=== PATIENT | male | born 1970 | race African-American/Black ===

== ENCOUNTER → 2017-09-20 | Outpatient (CLI) | payer BC ==
--- NOTE | 2017-09-20 08:56 | Diagnostic Imaging Report ---
Clinical indication: Patient with pain and swelling to the first and second metacarpal areas. No known injury to hand. Exam: X-ray of the left hand, 3 views. Comparison: None. Findings: There appears to be nonspecific soft tissue swelling involving the first through third digits. There is no radiodense foreign objects or air seen in the soft tissue. There are small degenerative spurs scattered throughout the IP joints of the left hand. Chronic calcification or old traumatic injury seen involving the volar base of the fourth middle phalanx. Impression: 1: There is no evidence of acute fracture or dislocation. 2: Nonspecific soft tissue swelling of the first through third digits. There is no radiodense foreign object in the soft tissue or subcutaneous air. 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 4: Suspected chronic posttraumatic calcification seen adjacent to the volar base of the fourth middle phalanx Dictated by: Dictated on workstation # [id number]
== END ==
LOC: RAD 08:22
PROVIDERS: ATTEND Nurse Practitioner Family
DX: M19.042 Primary osteoarthritis, left hand (principal)
CPT/HCPCS: 73130

== ENCOUNTER 2019-02-02 15:07 | Outpatient (CLI) | payer BC | END 2019-02-02 15:50 | disposition home or self-care (01) | LOC: SLEEP 15:07 | PROVIDERS: ATTEND Nurse Practitioner Family | DX: G47.50 Parasomnia, unspecified (principal); G47.10 Hypersomnia, unspecified; R06.83 Snoring ==

== ENCOUNTER → 2021-04-24 | Outpatient (CLI) | payer BC ==
--- NOTE | 2021-04-24 16:15 | Diagnostic Imaging Report ---
PROCEDURE: MRI right joint lower extremity without contrast. TECHNIQUE: Multiplanar, multisequence non contrast-enhanced MRI of the right lower extremity was accomplished. INDICATION: Right ankle pain, no known injury COMPARISON: None FINDINGS: No acute fracture is seen in the right ankle. There is mild bone marrow edema throughout the talus and in the body of the calcaneus. No fracture line is seen. There are moderate to large tibiotalar and subtalar joint effusions. There are degenerative changes in the midfoot. No cortical erosion is seen. There is mild generalized muscular atrophy. The anterior and posterior syndesmotic ligaments appear intact. The anterior talofibular ligament is not well seen and may be torn. The calcaneofibular ligament is intact. The posterior talofibular ligament appears intact. The deep fibers of the deltoid ligament appear intact. The spring ligament is intact. The plantar fascia is mildly thickened and there is a plantar calcaneal enthesophyte. There is loss of fat signal in the sinus tarsi. The Achilles tendon appears intact. The peroneal tendons are intact. The flexor tendons appear intact. The extensor tendons are intact. There is diffuse superficial and deep soft tissue edema about the ankle. IMPRESSION: 1. Moderate to large tibiotalar and subtalar joint effusions which are nonspecific. This could be due to infection or an inflammatory arthropathy. 2. Mild bone marrow edema in the hindfoot. This is likely reactive. In the setting of infection, this could represent osteomyelitis. 3. Loss of fat signal in sinus tarsi, can be seen with sinus tarsi syndrome. 4. Question age-indeterminate tear of the anterior talofibular ligament. 5. Nonspecific superficial and deep soft tissue edema about the ankle. Dictated by: Dictated on workstation # [id number]
== END ==
LOC: RAD 14:17
PROVIDERS: ATTEND Podiatrist Foot & Ankle Surgery
DX: S93.401A Sprain of unspecified ligament of right ankle, initial encounter (principal); M76.71 Peroneal tendinitis, right leg
CPT/HCPCS: 73721

== ENCOUNTER → 2021-06-08 | Outpatient (RCR) | payer BC | END | disposition home or self-care (01) | PROVIDERS: ATTEND Podiatrist Foot & Ankle Surgery | DX: M76.72 Peroneal tendinitis, left leg (principal); M76.71 Peroneal tendinitis, right leg; M76.821 Posterior tibial tendinitis, right leg; M76.822 Posterior tibial tendinitis, left leg ==

== ENCOUNTER → 2021-07-06 | Outpatient (RCR) | payer BC | END | disposition home or self-care (01) | PROVIDERS: ATTEND Podiatrist Foot & Ankle Surgery | DX: M76.822 Posterior tibial tendinitis, left leg (principal); M76.821 Posterior tibial tendinitis, right leg; H01.8 Other specified inflammations of eyelid; I10 Essential (primary) hypertension ==

== ENCOUNTER 2021-07-22 11:09 | Outpatient (RCR) | payer BC | END 2021-08-06 | disposition home or self-care (01) | PROVIDERS: ATTEND Podiatrist Foot & Ankle Surgery | DX: M76.822 Posterior tibial tendinitis, left leg (principal); M76.821 Posterior tibial tendinitis, right leg; H01.8 Other specified inflammations of eyelid; I10 Essential (primary) hypertension ==